=== PATIENT | female | born 1955 | race Caucasian/White ===

== ENCOUNTER 2017-04-02 03:01 | Observation (INO) | payer MEDICARE ==
[~2017-04-02 03:01] MED LIST: ACTOPLUS MET 151 TA; ALBUTEROL17 GM; ASPIRIN81 MG PO; CALCIUM 1,2001 EACH PO; FISH OIL 1,0001 CA; FISH OIL 1,0001 EAC1 PO; FUROSEMIDE20 MG PO; GLIPIZIDE10 MG; GLUCOPHAGE1000 MG PO; K DUR NG; LANTUS100 U/ML SC; LISINOPRIL-HCTZ1 TAB PO; LYRICA50 MG PO; MICARDIS40 MG; MODAFINIL200 MG PO; MOVEFREE; MULTIVITAMIN1 TAB; NAPROXEN SODIU550 MG; NAPROXEN500 MG PO; NOVOLOG100 U/M SQ; PREVACID15 MG; PRILOSEC20 MG PO; VENLAFAXINE HCL75 M2 PO; VITAMIN C PO; ZOCOR20 MG PO; ZOFRAN4 MG PO; [UNRECOGNIZED DRUG - OTHER]
[2017-04-02 03:31] LABS: URINE BILIRUBIN NEGATIVE (NEG); URINE BLOOD NEGATIVE (NEG); URINE GLUCOSE (UA) LARGE (NEG); URINE KETONE NEGATIVE (NEG); URINE LEUKOCYTE ESTERASE NEGATIVE (NEG); URINE NITRITE NEGATIVE (NEG); URINE PROTEIN NEGATIVE (NEG)
[2017-04-02] MEDS ORDERED: LANTUS SOL100 UNIT/1 SC (03:36)
[2017-04-02] MEDS ORDERED: LASIX20 M1 PO (03:36)
[2017-04-02] MEDS ORDERED: NEURONTIN300 M1 PO (03:36)
[2017-04-02 03:37] LABS: URINE APPEARANCE CLEAR; URINE COLOR YELLOW
[2017-04-02] MEDS ORDERED: PROVIGIL200 M1 PO (03:37)
[2017-04-02] MEDS ORDERED: LISINOPRIL-HCT1 EAC3 PO (03:37)
[2017-04-02] MEDS ORDERED: EFFEXOR XR75 M1 PO (03:37)
[2017-04-02 03:38] LABS: URINE BACTERIA 2+; URINE RBC 0 /[HPF] (0-5)
[2017-04-02] MEDS ORDERED: SODIUM BICARBO650 M1 PO (03:38)
[2017-04-02] MEDS ORDERED: ASPIRIN81 M1 PO (03:38)
[2017-04-02] MEDS ORDERED: VITAMIN C1000 M1 PO (03:38)
[2017-04-02] MEDS ORDERED: OMEPRAZOLE40 M2 PO (03:38)
[2017-04-02] MEDS ORDERED: VITAMIN B-1100 M4 PO (03:39)
[2017-04-02] MEDS ORDERED: SUPER B MAXI C0.4 MG PO (03:39)
[2017-04-02 04:00] LABS: BASO % 0.4 % (0-2); EOS % 2.8 % (0-7); EOSINOPHIL ABSOLUTE COUNT 0.1 tho/cmm (0.0-0.7); HCT-HEMATOCRIT 33.3 % (34.0-49.0); LYMPH % 28.4 % (20-45); LYMPH ABSOLUTE COUNT 1.3 tho/cmm (0.8-4.5); MCH (MEAN CORPUSCULAR HGB) 33.6 pg (28.0-32.0); MCV (MEAN CELL VOLUME) 101.8 fl (82.0-96.0); MEAN PLATELET VOLUME 9.7 cmc (9.4-12.4); MONO % 6.8 % (0-12); MONOCYTE ABSOLUTE COUNT 0.3 tho/cmm (0.0-1.2); NEUTROPHIL ABSOLUTE COUNT 2.9 tho/cmm (1.6-8.0); NEUTROPHIL-AUTOMATED 2.9 tho/cmm (1.6-8.0); NEUTROPHILS % 61.6 % (40-80); PLATELET COUNT 220 tho/cmm (150-450); RED BLOOD COUNT 3.27 mil/cmm (4.00-5.20); RED CELL DISTRIBUTION WIDTH 13.2 % (12.4-16.4); WHITE BLOOD COUNT 4.7 tho/cmm (4.0-10.0)
[2017-04-02 04:20] LABS: ALB/GLOB RATIO 0.6 (0.8-2.0); ALBUMIN 3.1 g/dl (3.5-5.0); ALKALINE PHOSPHATASE 230 U/L (33-138); ALT/SGPT 82 U/L (12-78); ANION GAP 14 mmol/L (0-20); AST/SGOT 60 U/L (10-40); BILIRUBIN,TOTAL 0.3 mg/dl (0-1.5); BLOOD UREA NITROGEN 36 mg/dl (6-24); CALCIUM 8.9 mg/dl (8.5-10.5); CARBON DIOXIDE-VENOUS 26 mmol/L (22-32); CHLORIDE 104 mmol/l (96-110); CREATININE 1.35 mg/dl (0.50-1.10); GLUCOSE 324 mg/dL (70-110); POTASSIUM 4.1 mmol/L (3.7-5.1); SODIUM 140 mmol/L (135-145); eGFR VALUE FOR BLACK 48 mL/Min
[2017-04-02 07:54] LABS: PROCALCITONIN 0.22 ng/ml (0.05-0.09)
[2017-04-02] MEDS ORDERED: TRIMETHOPRIM100 M1 PO (09:49)
[2017-04-02] MEDS ORDERED: CHILDREN S MUL PO (09:49)
[2017-04-02] MEDS ORDERED: ALLOPURINOL300 M1 PO (09:50)
[2017-04-02] MEDS ORDERED: CIPRO500 M2 PO (09:50)
[2017-04-02] MEDS ORDERED: NOVOLOG FL100 UNIT/2 SC ×3 (09:51→09:52)
[2017-04-02] MEDS ORDERED: ULTRAM50 M1 PO (09:53)
[2017-04-03 05:31] LABS: BASO % 0.2 % (0-2); EOS % 3.6 % (0-7); EOSINOPHIL ABSOLUTE COUNT 0.2 tho/cmm (0.0-0.7); HCT-HEMATOCRIT 32.7 % (34.0-49.0); HGB-HEMOGLOBIN 10.6 gm/dl (12.0-15.5); LYMPH % 35.8 % (20-45); LYMPH ABSOLUTE COUNT 1.6 tho/cmm (0.8-4.5); MCHC MEAN CORPUSCULAR HGB CONC 32.4 % (32.0-36.0); MCV (MEAN CELL VOLUME) 101.9 fl (82.0-96.0); MEAN PLATELET VOLUME 9.4 cmc (9.4-12.4); MONO % 7.2 % (0-12); MONOCYTE ABSOLUTE COUNT 0.3 tho/cmm (0.0-1.2); NEUTROPHIL ABSOLUTE COUNT 2.4 tho/cmm (1.6-8.0); NEUTROPHIL-AUTOMATED 2.4 tho/cmm (1.6-8.0); NEUTROPHILS % 53.2 % (40-80); PLATELET COUNT 198 tho/cmm (150-450); RED BLOOD COUNT 3.21 mil/cmm (4.00-5.20); WHITE BLOOD COUNT 4.4 tho/cmm (4.0-10.0)
[2017-04-03 05:44] LABS: ALB/GLOB RATIO 0.6 (0.8-2.0); ALBUMIN 2.8 g/dl (3.5-5.0); ALKALINE PHOSPHATASE 210 U/L (33-138); ALT/SGPT 72 U/L (12-78); ANION GAP 9 mmol/L (0-20); AST/SGOT 44 U/L (10-40); BILIRUBIN,TOTAL 0.3 mg/dl (0-1.5); BLOOD UREA NITROGEN 22 mg/dl (6-24); CALCIUM 8.7 mg/dl (8.5-10.5); CARBON DIOXIDE-VENOUS 29 mmol/L (22-32); CHLORIDE 109 mmol/l (96-110); CREATININE 1.02 mg/dl (0.50-1.10); GLUCOSE 168 mg/dL (70-110); SODIUM 142 mmol/L (135-145); eGFR VALUE FOR BLACK 68 mL/Min
== END 2017-04-03 16:30 ==
LOC: EDMED 03:01 → EMR2 12:13 → CAR1 12:18
PROVIDERS: Emergency Medicine; Physician Assistant; ADMIT Family Medicine
DX: N39.0 Urinary tract infection, site not specified (principal); B96.1 Klebsiella pneumoniae [K. pneumoniae] as the cause of diseases classified elsewhere; E11.22 Type 2 diabetes mellitus with diabetic chronic kidney disease; I12.9 Hypertensive chronic kidney disease with stage 1 through stage 4 chronic kidney disease, or unspecified chronic kidney disease; N18.3 Chronic kidney disease, stage 3 (moderate); N17.9 Acute kidney failure, unspecified; E11.40 Type 2 diabetes mellitus with diabetic neuropathy, unspecified; E11.65 Type 2 diabetes mellitus with hyperglycemia; G47.30 Sleep apnea, unspecified; Z99.89 Dependence on other enabling machines and devices; N13.30 Unspecified hydronephrosis; R74.9 Abnormal serum enzyme level, unspecified; Z79.82 Long term (current) use of aspirin; Z79.899 Other long term (current) drug therapy; Z88.1 Allergy status to other antibiotic agents; Z88.8 Allergy status to other drugs, medicaments and biological substances
CPT/HCPCS: G0378; G8978-GP-CI; G8979-GP-CI; G8980-GP-CI; J0696; J1815; J2405; J7030